=== PATIENT | female | born 1970 | race Caucasian/White ===

== ENCOUNTER 2019-01-29 02:34 | Emergency (ER) | payer SELFPAY ==
[2019-01-29] MEDS ORDERED: Bupivacaine PF 0.5% 30 ML VIAL ONE (02:44)
== END 2019-01-29 03:05 | disposition home or self-care (01) ==
LOC: MADERS 02:34
DX: K08.89 Other specified disorders of teeth and supporting structures (principal); F17.210 Nicotine dependence, cigarettes, uncomplicated; G43.909 Migraine, unspecified, not intractable, without status migrainosus; E11.9 Type 2 diabetes mellitus without complications
CPT/HCPCS: 64400; S0020

== ENCOUNTER 2019-02-02 23:01 | Emergency (ER) | payer SELFPAY ==
[2019-02-02] MEDS ORDERED: Ibuprofen 800 MG TAB ONE (23:31)
== END 2019-02-02 23:35 | disposition home or self-care (01) ==
LOC: MADERS 23:01
DX: K02.9 Dental caries, unspecified (principal); E11.9 Type 2 diabetes mellitus without complications; G43.909 Migraine, unspecified, not intractable, without status migrainosus; F17.210 Nicotine dependence, cigarettes, uncomplicated; Z79.2 Long term (current) use of antibiotics; Z79.84 Long term (current) use of oral hypoglycemic drugs; Z71.6 Tobacco abuse counseling; Z79.899 Other long term (current) drug therapy
CPT/HCPCS: 99406